=== PATIENT | male | born 1960 | race Caucasian/White ===

== ENCOUNTER → 2021-05-08 | Outpatient (CLI) | payer OTHER | LOC: CAT 08:54 | PROVIDERS: ATTEND Internal Medicine | DX: Z13.6 Encounter for screening for cardiovascular disorders (principal) ==

== ENCOUNTER → 2021-05-08 | Outpatient (CLI) | payer OTHER | LOC: SJCVCIMAG | PROVIDERS: ATTEND Internal Medicine | DX: R94.31 Abnormal electrocardiogram [ECG] [EKG] (principal); R00.2 Palpitations; E78.5 Hyperlipidemia, unspecified; F17.200 Nicotine dependence, unspecified, uncomplicated; E78.00 Pure hypercholesterolemia, unspecified; E03.9 Hypothyroidism, unspecified; Z72.89 Other problems related to lifestyle; Z79.899 Other long term (current) drug therapy ==